=== PATIENT | female | born 1935 | race Caucasian/White ===

== ENCOUNTER → 2017-11-03 | Outpatient (CLI) | payer OTHER | LOC: ULTRA 14:53 | DX: M25.561 Pain in right knee (principal) ==

== ENCOUNTER → 2020-03-20 | Outpatient (CLI) | payer OTHER | LOC: MRI 10:26 | PROVIDERS: ATTEND Nurse Practitioner | DX: R42 Dizziness and giddiness (principal); H53.8 Other visual disturbances ==

== ENCOUNTER → 2020-05-25 | Outpatient (CLI) | payer OTHER | LOC: MRI 11:55 | PROVIDERS: ATTEND Family Medicine | DX: M47.812 Spondylosis without myelopathy or radiculopathy, cervical region (principal); M48.02 Spinal stenosis, cervical region ==